=== PATIENT | male | born 1970 | race Asian ===

== ENCOUNTER 2017-01-26 08:47 | Inpatient (IN) | payer MEDICAID ==
[~2017-01-26] VITALS: Ht 170.2 cm; Wt 89.8 kg
[~2017-01-26 08:47] MED LIST: APAP/HYDROCODON1 T13 PO; COL0.6 PO; COLACE100 MG PO; COLCHICINE0.6 MG PO; CRESTOR5 M1 PO; ECO81 PO; FUROSEMIDE20 MG PO; GLU5 PO; IND50 PO; INDOMETHACIN50 MG PO; L20 PO; METFORMIN ER500 M1 PO; METFORMIN HCL1000 MG PO; METOPROLOL SUCC50 M2 PO; METOPROLOL TART25 M1 PO; MOTRIN800 MG PO; NORCO1 TA2 PO; PRILOSEC20 MG PO; ZES5 PO; ZESTRIL5 MG PO; ZOC10 PO; ZYL100 PO
[2017-01-26 09:43] LABS: CALCIUM 9.5 mg/dL (8.5-10.1); CHLORIDE SERUM 96 mmol/L (98-107); CREATININE SERUM 1.1 mg/dL (0.7-1.3); GFR1 > 60 mL/min; GLUCOSE SERUM 360 mg/dL (74-106); SODIUM SERUM 134 mmol/L (136-145)
[2017-01-26 09:48] LABS: ALKALINE PHOSPHATASE 89 U/L (46-116); ALT/SGPT 19 U/L (16-63); AMYLASE 50 U/L (25-115); AST/SGOT 15 U/L (15-37); BILIRUBIN TOTAL 0.5 mg/dL (0.20-1.00); LIPASE 157 IU/L (73-393)
[2017-01-26 09:50] LABS: BASOPHIL % 0.4 % (0-2); PLATELET COUNT 309 x10^3mcL (130-400); RED CELL DISTRIBUTION WIDTH 14.2 % (11.5-14.5)
[2017-01-26 09:54] LABS: ALBUMIN 3.1 g/dL (3.4-5.0); TOTAL PROTEIN, SERUM 8.4 g/dL (6.4-8.2)
[2017-01-26 09:55] LABS: UA SPECIFIC GRAVITY >=1.030 (1.005-1.035); microscopic required? YES; urine erythrocyte 3+ (NEGATIVE)
[2017-01-26 13:48] VITALS: BP 136/86
[2017-01-26 14:29] LABS: T3 TOTAL 0.9 ng/mL
[2017-01-26 14:30] LABS: CHOLESTEROL/HDL RATIO 4.5
[2017-01-26 14:34] LABS: FREE T4 1.34 ng/dL (0.76-1.46); FREE THYROXINE INDEX 3.3 ug/dL (1.4-4.5); T4(THYROXINE) 9.1 ug/dL (4.7-13.3)
[2017-01-26 14:44] LABS: AMPHETAMINE QUAL UR NONE DETECTED (NEG <=1000)
[2017-01-26 18:55] VITALS: BP 149/90
[2017-01-26 21:23] VITALS: BP 149/93
[2017-01-27 05:15] VITALS: BP 127/82
[2017-01-27 06:18] LABS: BASOPHIL % 0.3 % (0-2); PLATELET COUNT 265 x10^3mcL (130-400); RED CELL DISTRIBUTION WIDTH 14.1 % (11.5-14.5)
[2017-01-27 06:26] LABS: CALCIUM 8.2 mg/dL (8.5-10.1); CARBON DIOXIDE 26.2 mmol/L (21-32); CHLORIDE SERUM 105 mmol/L (98-107); CREATININE SERUM 0.8 mg/dL (0.7-1.3); GFR1 > 60 mL/min; GLUCOSE SERUM 172 mg/dL (74-106); MAGNESIUM 1.7 mg/dL (1.8-2.4); PHOSPHOROUS 3.1 mg/dL (2.5-4.9); POTASSIUM SERUM 4.1 mmol/L (3.5-5.1); SODIUM SERUM 138 mmol/L (136-145)
[2017-01-27 09:54] VITALS: BP 140/89
[2017-01-27 17:25] VITALS: BP 136/89
[2017-01-27 20:46] VITALS: BP 153/87
[2017-01-28 05:36] VITALS: BP 110/73
[2017-01-28 06:55] LABS: CALCIUM 8.8 mg/dL (8.5-10.1); CARBON DIOXIDE 27.4 mmol/L (21-32); CHLORIDE SERUM 105 mmol/L (98-107); CREATININE SERUM 0.8 mg/dL (0.7-1.3); GFR1 > 60 mL/min; GLUCOSE SERUM 74 mg/dL (74-106); MAGNESIUM 1.6 mg/dL (1.8-2.4); PHOSPHOROUS 3.8 mg/dL (2.5-4.9); POTASSIUM SERUM 3.9 mmol/L (3.5-5.1); SODIUM SERUM 141 mmol/L (136-145)
[2017-01-28 07:25] LABS: BASOPHIL % 0.3 % (0-2); PLATELET COUNT 296 x10^3mcL (130-400); RED CELL DISTRIBUTION WIDTH 13.9 % (11.5-14.5)
[2017-01-28 09:19] VITALS: BP 133/82
[2017-01-28] MEDS ORDERED: COL0.6 PO (14:16)
[2017-01-28] MEDS ORDERED: FLO4 PO (14:17)
[2017-01-28] MEDS ORDERED: INDOMETHACIN50 MG PO (14:19)
[2017-01-28] MEDS ORDERED: GLU5 PO (14:21)
[2017-01-28] MEDS ORDERED: NAPROXEN375 MG PO (14:39)
[2017-01-28] MEDS ORDERED: NOR10T PO (14:40)
[2017-01-28 14:49] VITALS: BP 133/82
== END 2017-01-28 15:31 | disposition home or self-care (01) | DRG 351 ==
LOC: ED 08:47 → DU 12:52 → MU 12:52 → DU 13:38 → MU 01-27 06:47
PROVIDERS: Specialist; ADMIT Family Medicine
DX: M10.061 Idiopathic gout, right knee (principal); N17.0 Acute kidney failure with tubular necrosis; E44.0 Moderate protein-calorie malnutrition; D68.69 Other thrombophilia; I42.9 Cardiomyopathy, unspecified; E11.65 Type 2 diabetes mellitus with hyperglycemia; E87.1 Hypo-osmolality and hyponatremia; N20.0 Calculus of kidney; E86.0 Dehydration; E66.9 Obesity, unspecified; E78.5 Hyperlipidemia, unspecified; R31.9 Hematuria, unspecified; Z87.442 Personal history of urinary calculi; Z68.31 Body mass index [BMI] 31.0-31.9, adult; Z79.84 Long term (current) use of oral hypoglycemic drugs
CPT/HCPCS: 80307; 82962; 83880; 84439; J1815; J1885; J2270; J2405; J3010; J7030; J7510; J7512; Q0092

== ENCOUNTER 2017-05-07 23:01 | Inpatient (IN) | payer MEDICAID ==
[~2017-05-07] VITALS: Ht 170.2 cm; Wt 90.7 kg
[~2017-05-07 23:01] MED LIST changes: +FLO4 PO; +NAPROXEN375 MG PO; +NOR10T PO
[2017-05-08 00:16] LABS: BASOPHIL % 0.3 % (0-2); PLATELET COUNT 218 x10^3mcL (130-400); RED CELL DISTRIBUTION WIDTH 14.5 % (11.5-14.5)
[2017-05-08 00:25] LABS: UA SPECIFIC GRAVITY 1.015 (1.005-1.035); microscopic required? YES; urine erythrocyte 1+ (NEGATIVE)
[2017-05-08 00:34] LABS: CALCIUM 8.2 mg/dL (8.5-10.1); CREATININE SERUM 2.7 mg/dL (0.7-1.3); POTASSIUM SERUM 4.4 mmol/L (3.5-5.1)
[2017-05-08 00:45] LABS: ALBUMIN 3.3 g/dL (3.4-5.0); BILIRUBIN TOTAL 0.27 mg/dL (0.20-1.00)
[2017-05-08] MEDS ORDERED: JANUVIA100 M1 PO (04:50)
[2017-05-08 04:56] LABS: CHOLESTEROL/HDL RATIO 4.4; MAGNESIUM 1.3 mg/dL (1.8-2.4); PHOSPHOROUS 3.8 mg/dL (2.5-4.9)
[2017-05-08 05:00] LABS: T3 TOTAL 0.83 ng/mL
[2017-05-08 05:06] LABS: FREE T4 1.07 ng/dL (0.76-1.46); T4(THYROXINE) 8.2 ug/dL (4.7-13.3)
[2017-05-08 05:14] VITALS: BP 103/67
[2017-05-08 09:43] VITALS: BP 94/65
[2017-05-08 12:10] LABS: CARBON DIOXIDE 22.5 mmol/L (21-32); CREATININE SERUM 2.6 mg/dL (0.7-1.3); POTASSIUM SERUM 4.5 mmol/L (3.5-5.1)
[2017-05-08 13:22] VITALS: BP 102/69
[2017-05-09 06:11] VITALS: BP 130/88
[2017-05-09 07:37] LABS: BASOPHIL % 0.3 % (0-2); PLATELET COUNT 204 x10^3mcL (130-400)
[2017-05-09 07:40] LABS: RED CELL DISTRIBUTION WIDTH 14.6 % (11.5-14.5)
[2017-05-09 07:41] LABS: rbc morphology (normal/abnorm) ABNORMAL (NORMAL)
[2017-05-09 07:56] LABS: CALCIUM 7.8 mg/dL (8.5-10.1); CARBON DIOXIDE 19.1 mmol/L (21-32); CREATININE SERUM 2.3 mg/dL (0.7-1.3); MAGNESIUM 1.2 mg/dL (1.8-2.4); PHOSPHOROUS 2.6 mg/dL (2.5-4.9); POTASSIUM SERUM 4.6 mmol/L (3.5-5.1)
[2017-05-09 09:15] VITALS: BP 150/81
[2017-05-09 10:00] VITALS: BP 118/73
[2017-05-09 14:03] VITALS: BP 145/74
[2017-05-09 17:27] VITALS: BP 126/71
[2017-05-09 21:35] VITALS: BP 129/76
[2017-05-10 05:48] VITALS: BP 138/75
[2017-05-10 07:33] LABS: BASOPHIL % 0.4 % (0-2); CALCIUM 8.3 mg/dL (8.5-10.1); CARBON DIOXIDE 23.5 mmol/L (21-32); CREATININE SERUM 1.4 mg/dL (0.7-1.3); PHOSPHOROUS 2.9 mg/dL (2.5-4.9); PLATELET COUNT 231 x10^3mcL (130-400); POTASSIUM SERUM 4.1 mmol/L (3.5-5.1); RED CELL DISTRIBUTION WIDTH 14.7 % (11.5-14.5); URIC ACID 8.7 mg/dL (3.5-7.2)
[2017-05-10 07:34] LABS: rbc morphology (normal/abnorm) ABNORMAL (NORMAL)
[2017-05-10] MEDS ORDERED: LIPI10 PO (08:31)
[2017-05-10] MEDS ORDERED: APR25 PO (08:32)
[2017-05-10 09:40] VITALS: BP 133/84
[2017-05-10 10:49] VITALS: BP 133/84
== END 2017-05-10 11:14 | disposition home or self-care (01) | DRG 465 ==
LOC: ED 23:01 → DU 05-08 04:03
PROVIDERS: Emergency Medicine; Internal Medicine Nephrology; ADMIT Family Medicine
DX: N13.2 Hydronephrosis with renal and ureteral calculous obstruction (principal); N17.0 Acute kidney failure with tubular necrosis; E44.0 Moderate protein-calorie malnutrition; E11.59 Type 2 diabetes mellitus with other circulatory complications; D68.69 Other thrombophilia; I42.9 Cardiomyopathy, unspecified; E11.65 Type 2 diabetes mellitus with hyperglycemia; E83.42 Hypomagnesemia; D50.9 Iron deficiency anemia, unspecified; E78.5 Hyperlipidemia, unspecified; M10.9 Gout, unspecified; E66.9 Obesity, unspecified; Z68.31 Body mass index [BMI] 31.0-31.9, adult; Z87.442 Personal history of urinary calculi
CPT/HCPCS: 82962; 83880; 84439; J1170; J1885; J2270; J2916; J3475; J7030; Q0092; Q0162

== ENCOUNTER 2018-01-20 13:40 | Emergency (ER) | payer OTHER ==
[~2018-01-20] VITALS: Ht 167.6 cm; Wt 98.0 kg
[~2018-01-20 13:40] MED LIST changes: +APR25 PO; +JANUVIA100 M1 PO; +LIPI10 PO
[2018-01-20 13:47] VITALS: Ht 167.6 cm; Wt 98.0 kg
[2018-01-20 14:27] LABS: BASOPHIL % 0.4 % (0-2); PLATELET COUNT 205 x10^3mcL (130-400)
[2018-01-20 14:32] LABS: RED CELL DISTRIBUTION WIDTH 14.8 % (11.5-14.5)
[2018-01-20 14:49] LABS: CALCIUM 8.5 mg/dL (8.5-10.1); CARBON DIOXIDE 27.9 mmol/L (21-32); CHLORIDE SERUM 105 mmol/L (98-107); GFR1 > 60 mL/min; GLUCOSE SERUM 119 mg/dL (74-106); SODIUM SERUM 139 mmol/L (136-145)
[2018-01-20 14:55] LABS: POTASSIUM SERUM 4.1 mmol/L (3.5-5.1)
[2018-01-20 14:57] LABS: ALBUMIN 3.9 g/dL (3.4-5.0); ALKALINE PHOSPHATASE 63 U/L (46-116); BILIRUBIN TOTAL 0.5 mg/dL (0.20-1.00); CHOLESTEROL 189 mg/dL (<200); HDL CHOLESTEROL 40 mg/dL (40-60); PHOSPHOROUS 3.5 mg/dL (2.5-4.9)
[2018-01-20 15:15] LABS: URIC ACID 12.2 mg/dL (3.5-7.2)
[2018-01-20 15:19] LABS: TOTAL PROTEIN, SERUM 15.3 g/dL (6.4-8.2)
[2018-01-20 15:44] VITALS: BP 123/81
[2018-01-20 17:33] LABS: ALT/SGPT 92 U/L (16-63)
[2018-01-20 17:34] LABS: AST/SGOT 29 U/L (15-37)
== END 2018-01-20 15:44 | disposition home or self-care (01) ==
LOC: ED 13:40
PROVIDERS: Emergency Medicine
DX: R00.2 Palpitations (principal); I42.9 Cardiomyopathy, unspecified; I10 Essential (primary) hypertension; E11.9 Type 2 diabetes mellitus without complications
CPT/HCPCS: 36415; 83880; Q0092

== ENCOUNTER 2019-02-22 08:38 | Emergency (ER) | payer OTHER ==
[~2019-02-22] VITALS: Ht 170.2 cm; Wt 101.2 kg
[2019-02-22 08:40] VITALS: Ht 170.2 cm; Wt 101.2 kg
[2019-02-22 09:10] LABS: BASOPHIL % 0.3 % (0-2); PLATELET COUNT 195 x10^3mcL (130-400)
[2019-02-22 09:41] LABS: RED CELL DISTRIBUTION WIDTH 14.6 % (11.5-14.5)
[2019-02-22 11:22] LABS: CARBON DIOXIDE 24.9 mmol/L (21-32); CHLORIDE SERUM 105 mmol/L (98-107); POTASSIUM SERUM 4.4 mmol/L (3.5-5.1); SODIUM SERUM 140 mmol/L (136-145)
[2019-02-22 11:23] LABS: ALBUMIN 3.7 g/dL (3.4-5.0); ALKALINE PHOSPHATASE 53 U/L (46-116); ALT/SGPT 34 U/L (16-63); AST/SGOT 17 U/L (15-37); BILIRUBIN TOTAL 0.35 mg/dL (0.20-1.00); CALCIUM 9.5 mg/dL (8.5-10.1); GFR1 > 60 mL/min; GLUCOSE SERUM 185 mg/dL (74-106); TOTAL PROTEIN, SERUM 7.6 g/dL (6.4-8.2); URIC ACID 3.7 mg/dL (3.5-7.2)
[2019-02-22 12:00] LABS: AMPHETAMINE QUAL UR NONE DETECTED (See below)
[2019-02-22 15:23] VITALS: BP 139/83
== END 2019-02-22 15:20 | disposition home or self-care (01) ==
LOC: ED 08:38
PROVIDERS: Emergency Medicine
DX: R07.89 Other chest pain (principal); M25.512 Pain in left shoulder; I10 Essential (primary) hypertension; E11.9 Type 2 diabetes mellitus without complications; Z86.79 Personal history of other diseases of the circulatory system
CPT/HCPCS: 83880; J1885